=== PATIENT | male | born 1990 | race African-American/Black ===

== ENCOUNTER 2022-05-07 00:23 | Inpatient (IN) | payer OTHER ==
[~2022-05-07] VITALS: Ht 172.7 cm; Wt 74.9 kg
[2022-05-07] MEDS ORDERED: KETOROLAC 15MG/ML VIAL IV ONE (02:30)
[2022-05-07 02:58] LABS: BASOPHILS % 0.1 % (0.0-2.0); EOSINOPHILS % 0.1 % (0.0-5.0); HEMOGLOBIN. 14.3 g/dL (14.0-18.0); MEAN CORPUSCULAR HEMOGLOBIN 28.2 pg (28.0-32.0); MEAN CORPUSCULAR VOLUME 84.6 fL (80.0-94.0); MEAN PLATELET VOLUME 7.9 fl (7.4-10.4); MONOCYTES % 7.2 % (2.0-8.0); NEUTROPHILS % 84.6 % (40.0-76.0); PLATELET 318 x1000/uL (130-400); RED BLOOD CELL COUNT 5.08 mill/uL (4.7-6.1); RED CELL DISTRIBUTION WIDTH 15.6 % (11.6-14.6)
[2022-05-07 03:04] LABS: CHLORIDE 97 mEq/L (98-107)
[2022-05-07 03:14] LABS: ETHANOL BLOOD < 10 mg/dL
[2022-05-07] MEDS ORDERED: SODIUM CHLORIDE 0.9% 1,000 ML IV ONE (05:15)
[2022-05-07] MEDS ORDERED: HYDROCODONE/ACETAMINOPHEN 5/325MG TABLET PO ONE (05:15)
[2022-05-07] MEDS ORDERED: IOHEXOL-350 100 ML BOTTLE ONE ×2 (07:01→15:01)
[2022-05-07 09:00] VITALS: BP 130/63
[2022-05-07] MEDS ORDERED: ACETAMINOPHEN 325MG TABLET PO PRN (11:30)
[2022-05-07] MEDS ORDERED: ONDANSETRON HCL 4MG/2ML INJ IV PRN (11:30)
[2022-05-07] MEDS ORDERED: NALOXONE HCL 0.4MG/ML VIAL IV PRN (11:30)
[2022-05-07 12:00] VITALS: BP 127/48
[2022-05-07] MEDS: HYDROCODONE/ACETAMINOPHEN 5/325MG TABLET PO PRN ×2 (15:16→22:05)
[2022-05-07 16:00] VITALS: BP 134/69
[2022-05-07] MEDS: LEVOFLOXACIN 500MG PREMIX 100 ML IV SCH (17:30)
[2022-05-07 20:00] VITALS: BP 133/66
[2022-05-08] VITALS: BP 133/76
[2022-05-08 04:00] VITALS: BP 132/77
[2022-05-08 08:00] VITALS: BP 135/73
[2022-05-08 11:26] LABS: BASOPHILS % 0.2 % (0.0-2.0); EOSINOPHILS % 0.2 % (0.0-5.0); HEMATOCRIT. 39.4 % (42.0-52.0); HEMOGLOBIN. 13.1 g/dL (14.0-18.0); LYMPHOCYTES % 13.8 % (20.0-50.0); MEAN CORPUSCULAR HEMOGLOBIN 28.4 pg (28.0-32.0); MEAN CORPUSCULAR VOLUME 85.1 fL (80.0-94.0); MEAN PLATELET VOLUME 8.3 fl (7.4-10.4); MONOCYTES % 9.9 % (2.0-8.0); NEUTROPHILS % 75.9 % (40.0-76.0); PLATELET 297 x1000/uL (130-400); RED BLOOD CELL COUNT 4.63 mill/uL (4.7-6.1); RED CELL DISTRIBUTION WIDTH 15.5 % (11.6-14.6)
[2022-05-08 12:00] VITALS: BP 127/71
[2022-05-08 12:19] LABS: CHLORIDE 99 mEq/L (98-107)
[2022-05-08] MEDS: LEVOFLOXACIN 500MG PREMIX 100 ML IV SCH (13:23)
[2022-05-08 14:36] VITALS: BP 122/75
== END 2022-05-08 16:51 | disposition home or self-care (01) | DRG 203 ==
LOC: ER 00:23 → 8WST 05:23 → ENRESERV 08:12
PROVIDERS: ADMIT Internal Medicine; ATTEND Internal Medicine
DX: M94.0 Chondrocostal junction syndrome [Tietze] (principal); N17.0 Acute kidney failure with tubular necrosis; E43 Unspecified severe protein-calorie malnutrition; D72.829 Elevated white blood cell count, unspecified; E87.1 Hypo-osmolality and hyponatremia; E87.5 Hyperkalemia; Z60.2 Problems related to living alone; M79.642 Pain in left hand; Z20.822 Contact with and (suspected) exposure to COVID-19; M54.50 Low back pain, unspecified; M79.672 Pain in left foot; Z86.711 Personal history of pulmonary embolism; Z88.0 Allergy status to penicillin; Y08.89XA Assault by other specified means, initial encounter; Y93.89 Activity, other specified; Y92.89 Other specified places as the place of occurrence of the external cause; Y99.8 Other external cause status; Z68.25 Body mass index [BMI] 25.0-25.9, adult; F19.11 Other psychoactive substance abuse, in remission
CPT/HCPCS: 36415; 71045; 71275; 73130; 73630; 80048; 80053; 80320; 83880; 84484; 85025; 87426; 93005; 99285; J1885; J1956; J7030; J7042; Q9967; G0480